=== PATIENT | male | born 1950 | race Caucasian/White ===

== ENCOUNTER 2017-02-19 12:00 | Outpatient (CLI) | payer MEDICARE ==
[2017-02-19 16:30] LABS: Bilirubin Negative (Negative); Blood, Urine Negative (Negative); Clarity Clear (Clear); Glucose, Urine (Dipstick) Negative (Negative); Leukocyte Negative (Negative); Nitrite Negative (Negative); Protein, Urine (Dipstick) Negative (Neg-Trace); Urobilinogen 0.2 mg/dL (0.2-1.0)
[2017-02-19 16:42] LABS: #Basophils 0.1 thou/uL (0.0-0.2); #Eosinphils 0.2 thou/uL (0.0-0.7); #Lymphocytes 2.4 thou/uL (1.20-3.40); #Monocytes 0.6 thou/uL (0.11-0.59); #Neutrophils 5.3 thou/uL (1.40-6.50); %Basophils 1.5 % (0.0-1.0); %Eosinophils 1.8 % (0.0-10.0); %Lymphocytes 28.1 % (21.0-51.0); %Monocytes 7.4 % (0.0-10.0); %Neutrophils 61.2 % (42.0-75.0); Bacteria/HPF None Seen HPF (None Seen); Hemoglobin 14.9 g/dL (14.0-18.0); Mean Corpuscular Hemoglobin 30.8 pg (27.0-31.0); Mean Corpuscular Volume 88.1 fl (80.0-94.0); Mean Platelet Volume 8.2 fL (7.4-10.4); Platelet Count 144 thou/uL (130-400); RBC Distribution Width 13.1 % (11.5-14.5); RBC/HPF None Seen HPF (0-3); Red Blood Cell (RBC) Count 4.83 mill/uL (4.70-6.10); Squamous Epithelial 0-3 HPF (0-3); WBC/HPF None Seen HPF (0-3); White Blood Cell (WBC) Count 8.6 thou/uL (4.8-10.8)
[2017-02-19 16:54] LABS: ALT (SGPT) 22 U/L (8-55); AST (SGOT) 18 U/L (5-34); Albumin 4.2 g/dL (3.4-4.8); Alkaline Phosphatase 76 U/L (40-150); Anion Gap 14 mmol/L (10-20); BUN (Urea Nitrogen) 18 mg/dL (8.4-25.7); Bilirubin, Total 0.6 mg/dL (0.2-1.2); Calc. Creatinine Clearance 0 mL/min (70-130); Calcium 9.3 mg/dL (7.8-10.44); Carbon Dioxide 28 mmol/L (23-31); Cardiac Risk 3.4 (Less than 4.5); Chloride 106 mmol/L (98-107); Cholesterol 155 mg/dl (< 200 Desired); Estimated GFR-MDRD 62; Globulin 2.9 g/dL (2.4-3.5); Glucose 68 mg/dL (80-115); HDL Cholesterol 45 mg/dL (>60 Neg Risk); LDL Cholesterol, Calculated 89 mg/dL; Potassium 4.4 mmol/L (3.5-5.1); Protein, Total 7.1 g/dL (5.8-8.1); Sodium 144 mmol/L (136-145); Triglycerides 106 mg/dL (Less than 150)
[2017-02-19 17:41] LABS: Thyroid Stimulating Hormone 3.9545 uIU/mL (0.35-4.94)
[2017-02-19 17:58] LABS: Hep C IgG Ab Non-Reactive (NonReactive)
== END 2017-02-19 12:01 | disposition home or self-care (01) ==
LOC: LABLEX 12:00
PROVIDERS: ATTEND Family Medicine
DX: Z12.5 Encounter for screening for malignant neoplasm of prostate (principal); Z13.6 Encounter for screening for cardiovascular disorders; E03.9 Hypothyroidism, unspecified; R33.9 Retention of urine, unspecified; N40.1 Benign prostatic hyperplasia with lower urinary tract symptoms; T67.5XXA Heat exhaustion, unspecified, initial encounter; Z98.890 Other specified postprocedural states; Z87.898 Personal history of other specified conditions; Z72.89 Other problems related to lifestyle
CPT/HCPCS: 80053; 80061; 81001; 84443; 85025; 86803; 87086

== ENCOUNTER 2017-04-24 09:59 | Outpatient (CLI) | payer MEDICARE ==
[2017-04-24 16:42] LABS: Free T4 (Free Thyroxine) 1.02 ng/dL (0.70-1.48); Thyroid Stimulating Hormone 3.6217 uIU/mL (0.35-4.94)
== END 2017-04-24 10:00 | disposition home or self-care (01) ==
LOC: LABLEX 09:59
PROVIDERS: ATTEND Nurse Practitioner
DX: E03.9 Hypothyroidism, unspecified (principal)
CPT/HCPCS: 84439; 84443

== ENCOUNTER 2018-12-21 08:55 | Outpatient (CLI) | payer MEDICARE ==
[2018-12-21 12:18] LABS: Eosinophils 1 % (0-10); Hemoglobin 13.7 g/dL (14.0-18.0); Lymphocytes 18 % (21-51); MDiff Complete? YES; Mean Corpuscular HGB CONC 33.8 g/dL (32.0-36.0); Mean Corpuscular Hemoglobin 29.7 pg (27.0-31.0); Mean Corpuscular Volume 87.9 fL (78.0-98.0); Mean Platelet Volume 9.5 fL (7.4-10.4); Monocytes 2 % (0-10); Neutrophil 79 % (42-75); Platelet Morphology Comment PLT clumps seen-ADEQ; RBC Distribution Width 13.6 % (11.5-14.5); White Blood Cell (WBC) Count 8.5 thou/uL (4.8-10.8)
[2018-12-21 12:48] LABS: Hemoglobin A1c 5.3 % (4.0-6.0)
--- NOTE | 2018-12-21 13:04 | RAD ---
CHEST 2 VIEWS: DATE: 12/21/2018. FINDINGS: The heart is normal in size and the lungs are clear. There is no infiltrate or effusion. The medias tinum appears normal and the trachea is midline. IMPRESSION: No acute findings. POS: [facility]
[2018-12-21 18:12] LABS: ALT (SGPT) 18 U/L (8-55); AST (SGOT) 14 U/L (5-34); Albumin 3.9 g/dL (3.4-4.8); Alkaline Phosphatase 88 U/L (40-150); Anion Gap 11 mmol/L (10-20); BUN (Urea Nitrogen) 20 mg/dL (8.4-25.7); Bilirubin, Total 0.5 mg/dL (0.2-1.2); Calc. Creatinine Clearance 0 mL/min (70-130); Calcium 8.9 mg/dL (7.8-10.44); Carbon Dioxide 30 mmol/L (23-31); Chloride 107 mmol/L (98-107); Estimated GFR-MDRD 54; Globulin 2.7 g/dL (2.4-3.5); Glucose 93 mg/dL (80-115); Potassium 3.6 mmol/L (3.5-5.1); Protein, Total 6.6 g/dL (5.8-8.1); Sodium 144 mmol/L (136-145)
== END 2018-12-21 08:56 | disposition home or self-care (01) ==
LOC: BURRAD 08:55
PROVIDERS: ATTEND Family Medicine
DX: Z01.818 Encounter for other preprocedural examination (principal); I10 Essential (primary) hypertension; R73.01 Impaired fasting glucose
CPT/HCPCS: 36415; 71046; 80053; 83036; 85025; 87081

== ENCOUNTER 2021-05-17 17:43 | Inpatient (IN) | payer MEDICARE ==
[2021-05-17 18:09] LABS: Bilirubin Negative (Negative); Blood, Urine Large (Negative); Clarity Slightly Cloudy (Clear); Glucose, Urine (Dipstick) Negative (Negative); Ketone, Urine Negative (Negative); Leukocyte Moderate (Negative); Nitrite Negative (Negative); Protein, Urine (Dipstick) 100 mg/dL (Neg-Trace)
[2021-05-17 18:15] LABS: RBC/HPF Greater than 50 HPF (0-3); Squamous Epithelial 0-3 HPF (0-3); WBC/HPF 21-50 HPF (0-3)
[2021-05-17 18:16] LABS: Bacteria/HPF Rare-Few HPF (None Seen)
[2021-05-17] MEDS ORDERED: Acetaminophen 500 MG TAB ONE ×2 (18:23→18:34)
[2021-05-17] MEDS ORDERED: Ondansetron ODT 4 MG TAB ONE (18:23)
[2021-05-17] MEDS ORDERED: cefTRIAXone\\ROCEPHIN 2 GM VIAL ONE (18:23)
[2021-05-17 18:26] LABS: Hemoglobin 12.9 g/dL (14.0-18.0); Mean Corpuscular HGB CONC 33.8 g/dL (32.0-36.0); Mean Corpuscular Hemoglobin 29.7 pg (27.0-31.0); Mean Corpuscular Volume 87.9 fL (78.0-98.0); Mean Platelet Volume 8.1 fL (7.4-10.4); Platelet Count 120 thou/uL (130-400); RBC Distribution Width 12.4 % (11.5-14.5); Red Blood Cell (RBC) Count 4.36 mill/uL (4.70-6.10)
[2021-05-17 18:39] LABS: ALT (SGPT) 34 U/L (8-55); AST (SGOT) 29 U/L (5-34); Albumin 3.2 g/dL (3.4-4.8); Alkaline Phosphatase 109 U/L (40-110); Anion Gap 16 mmol/L (10-20); BUN (Urea Nitrogen) 28 mg/dL (8.4-25.7); Bilirubin, Total 0.8 mg/dL (0.2-1.2); Calc. Creatinine Clearance 0 mL/min (70-130); Carbon Dioxide 26 mmol/L (23-31); Chloride 100 mmol/L (98-107); Globulin 3.8 g/dL (2.4-3.5); Glucose 140 mg/dL (80-115); Potassium 3.9 mmol/L (3.5-5.1); Sodium 138 mmol/L (136-145)
[2021-05-17 18:57] LABS: Band 8 % (5-11); Lymphocytes 20 % (21-51); MDiff Complete? YES; Monocytes 4 % (0-10); Neutrophil 66 % (42-75); Reactive Lymphocytes 1 % (0-10)
[2021-05-17] MEDS ORDERED: Fentanyl 100 MCG/2 ML VIAL ONE (19:42)
[2021-05-17 20:41] VITALS: BMI 36.6
[2021-05-17] MEDS ORDERED: traMADol HCl 50 MG TAB PO PRN (20:54)
[2021-05-17] MEDS ORDERED: Acetaminophen 325 MG TAB PO PRN (21:30)
[2021-05-17] MEDS ORDERED: Ondansetron PF 4 MG/2 ML Vial IVP PRN (21:30)
[2021-05-17] MEDS ORDERED: Ondansetron ODT 4 MG TAB SL PRN (21:30)
[2021-05-17] MEDS ORDERED: HYDROcodone/Acetaminophen 5/325 mg Tablet PO PRN ×2 (21:45)
[2021-05-17] MEDS: Dextrose 5 %-0.45 % NaCl 1,000 ML IV SCH (21:50)
[2021-05-17] MEDS: oxyCODONE 5 MG TAB PO SCH (21:50)
[2021-05-17] MEDS: traZODone HCl 50 MG TAB PO SCH (21:50)
[2021-05-17] MEDS: Apixaban 5 MG TAB PO SCH (21:50)
[2021-05-18] MEDS: Dextrose 5 %-0.45 % NaCl 1,000 ML IV SCH ×3 (04:42→22:19)
[2021-05-18] MEDS: Levothyroxine Sodium 100 MCG TAB PO SCH (04:44)
[2021-05-18] MEDS: cefTRIAXone\\ROCEPHIN 1 GM in Sodium Chloride 0.9% 100 ML IVPB SCH (08:21)
[2021-05-18] MEDS: Fluticasone Propionate Nasal Spray 16 gm Bottle NASAL SCH (08:22)
[2021-05-18] MEDS: Spironolactone 25 MG TAB PO SCH (08:22)
[2021-05-18] MEDS: Finasteride 5 MG TAB PO SCH (08:26)
[2021-05-18] MEDS: oxyCODONE 5 MG TAB PO SCH ×2 (08:26→20:22)
[2021-05-18] MEDS: Furosemide 40 MG TAB PO SCH (08:27)
[2021-05-18] MEDS: Tamsulosin HCl 0.4 MG CAP PO SCH (08:27)
[2021-05-18] MEDS: Apixaban 5 MG TAB PO SCH ×2 (08:27→20:22)
[2021-05-18] MEDS: Rosuvastatin 10 MG TAB PO SCH (08:28)
[2021-05-18] MEDS: Pyridostigmine Bromide 180 MG SRTAB PO SCH (10:58)
[2021-05-18] MEDS ORDERED: Bisacodyl 10 MG SUPP PR PRN (14:37)
[2021-05-18] MEDS: Polyethylene Glycol 3350 17 GM Packet PO PRN (14:56)
[2021-05-18] MEDS: traZODone HCl 50 MG TAB PO SCH (20:23)
[2021-05-19] MEDS: Dextrose 5 %-0.45 % NaCl 1,000 ML IV SCH (00:29)
[2021-05-19] MEDS: Levothyroxine Sodium 100 MCG TAB PO SCH (05:29)
[2021-05-19 06:02] LABS: Anion Gap 13 mmol/L (10-20)
[2021-05-19 06:31] LABS: ALT (SGPT) 257 U/L (8-55); AST (SGOT) 247 U/L (5-34); Albumin 2.6 g/dL (3.4-4.8); Alkaline Phosphatase 262 U/L (40-110); BUN (Urea Nitrogen) 19 mg/dL (8.4-25.7); Calc. Creatinine Clearance 75 mL/min (70-130); Calcium 7.6 mg/dL (7.8-10.44); Carbon Dioxide 25 mmol/L (23-31); Chloride 105 mmol/L (98-107); Globulin 2.6 g/dL (2.4-3.5); Glucose 180 mg/dL (80-115); Potassium 3.8 mmol/L (3.5-5.1); Protein, Total 5.2 g/dL (5.8-8.1); Sodium 139 mmol/L (136-145)
[2021-05-19 07:02] LABS: #Eosinphils 0.1 thou/uL (0.0-0.7); #Lymphocytes 1.3 thou/uL (1.20-3.40); #Monocytes 0.6 thou/uL (0.11-0.59); #Neutrophils 4.5 thou/uL (1.40-6.50); %Basophils 0.5 % (0.0-1.0); %Eosinophils 1.8 % (0.0-10.0); %Lymphocytes 20.1 % (21.0-51.0); %Monocytes 8.8 % (0.0-10.0); %Neutrophils 68.9 % (42.0-75.0); Band 3 % (5-11); Eosinophils 2 % (0-10); Hemoglobin 11.5 g/dL (14.0-18.0); Lymphocytes 18 % (21-51); MDiff Complete? YES; Mean Corpuscular HGB CONC 33.7 g/dL (32.0-36.0); Mean Corpuscular Hemoglobin 29.8 pg (27.0-31.0); Mean Corpuscular Volume 88.3 fL (78.0-98.0); Mean Platelet Volume 8.9 fL (7.4-10.4); Monocytes 9 % (0-10); Neutrophil 66 % (42-75); Platelet Count 118 thou/uL (130-400); Platelet Morphology Comment Appears Adequate; RBC Distribution Width 12.5 % (11.5-14.5); Reactive Lymphocytes 2 % (0-10); Red Blood Cell (RBC) Count 3.86 mill/uL (4.70-6.10); White Blood Cell (WBC) Count 6.5 thou/uL (4.8-10.8)
[2021-05-19] MEDS: Finasteride 5 MG TAB PO SCH (08:19)
[2021-05-19] MEDS: Spironolactone 25 MG TAB PO SCH (08:19)
[2021-05-19] MEDS: Rosuvastatin 10 MG TAB PO SCH (08:20)
[2021-05-19] MEDS: Furosemide 40 MG TAB PO SCH (08:20)
[2021-05-19] MEDS: oxyCODONE 5 MG TAB PO SCH ×2 (08:20→20:21)
[2021-05-19] MEDS: Tamsulosin HCl 0.4 MG CAP PO SCH (08:20)
[2021-05-19] MEDS: Apixaban 5 MG TAB PO SCH ×2 (08:20→20:21)
[2021-05-19] MEDS: cefTRIAXone\\ROCEPHIN 1 GM in Sodium Chloride 0.9% 100 ML IVPB SCH (08:21)
[2021-05-19] MEDS: Fluticasone Propionate Nasal Spray 16 gm Bottle NASAL SCH (08:23)
[2021-05-19 12:02] LABS: Bilirubin Negative (Negative); Blood, Urine Small (Negative); Clarity Clear (Clear); Glucose, Urine (Dipstick) Negative (Negative); Ketone, Urine Negative (Negative); Leukocyte Trace (Negative); Nitrite Negative (Negative); Protein, Urine (Dipstick) Negative (Neg-Trace)
[2021-05-19] MEDS: Pyridostigmine Bromide 180 MG SRTAB PO SCH (12:02)
[2021-05-19 12:03] LABS: Specific Gravity, Urine 1.004 (1.002-1.036)
[2021-05-19] MEDS: traZODone HCl 50 MG TAB PO SCH (20:22)
[2021-05-20] MEDS: Levothyroxine Sodium 100 MCG TAB PO SCH (05:32)
[2021-05-20 06:51] LABS: ALT (SGPT) 186 U/L (8-55); AST (SGOT) 78 U/L (5-34); Albumin 2.8 g/dL (3.4-4.8); Alkaline Phosphatase 248 U/L (40-110); Anion Gap 15 mmol/L (10-20); BUN (Urea Nitrogen) 20 mg/dL (8.4-25.7); Bilirubin, Total 0.7 mg/dL (0.2-1.2); Calc. Creatinine Clearance 75 mL/min (70-130); Calcium 8.5 mg/dL (7.8-10.44); Carbon Dioxide 26 mmol/L (23-31); Chloride 105 mmol/L (98-107); Globulin 3.4 g/dL (2.4-3.5); Glucose 112 mg/dL (80-115); Protein, Total 6.2 g/dL (5.8-8.1); Sodium 142 mmol/L (136-145)
[2021-05-20] MEDS: Polyethylene Glycol 3350 17 GM Packet PO PRN ×2 (09:49→21:08)
[2021-05-20] MEDS: Spironolactone 25 MG TAB PO SCH (09:50)
[2021-05-20] MEDS: Finasteride 5 MG TAB PO SCH (09:50)
[2021-05-20] MEDS: Rosuvastatin 10 MG TAB PO SCH (09:53)
[2021-05-20] MEDS: Apixaban 5 MG TAB PO SCH ×2 (09:53→20:06)
[2021-05-20] MEDS: oxyCODONE 5 MG TAB PO SCH ×2 (09:53→20:06)
[2021-05-20] MEDS: Tamsulosin HCl 0.4 MG CAP PO SCH (09:53)
[2021-05-20] MEDS: Furosemide 40 MG TAB PO SCH (09:53)
[2021-05-20] MEDS: cefTRIAXone\\ROCEPHIN 1 GM in Sodium Chloride 0.9% 100 ML IVPB SCH (09:54)
[2021-05-20] MEDS: Fluticasone Propionate Nasal Spray 16 gm Bottle NASAL SCH (09:54)
[2021-05-20] MEDS: Pyridostigmine Bromide 180 MG SRTAB PO SCH (09:55)
[2021-05-20] MEDS: traZODone HCl 50 MG TAB PO SCH (20:07)
[2021-05-21 04:21] VITALS: BP 131/73; TEMP 98.8
[2021-05-21 05:03] LABS: ALT (SGPT) 135 U/L (8-55); AST (SGOT) 39 U/L (5-34); Albumin 2.8 g/dL (3.4-4.8); Alkaline Phosphatase 246 U/L (40-110); Anion Gap 15 mmol/L (10-20); BUN (Urea Nitrogen) 22 mg/dL (8.4-25.7); Bilirubin, Total 0.5 mg/dL (0.2-1.2); Calc. Creatinine Clearance 78 mL/min (70-130); Calcium 8.4 mg/dL (7.8-10.44); Carbon Dioxide 26 mmol/L (23-31); Chloride 104 mmol/L (98-107); Globulin 3.5 g/dL (2.4-3.5); Glucose 120 mg/dL (80-115); Potassium 4.1 mmol/L (3.5-5.1); Protein, Total 6.3 g/dL (5.8-8.1); Sodium 141 mmol/L (136-145)
[2021-05-21] MEDS: Levothyroxine Sodium 100 MCG TAB PO SCH (05:12)
[2021-05-21] MEDS: Apixaban 5 MG TAB PO SCH (08:44)
[2021-05-21] MEDS: Furosemide 40 MG TAB PO SCH (08:45)
[2021-05-21] MEDS: Rosuvastatin 10 MG TAB PO SCH (08:45)
[2021-05-21] MEDS: Spironolactone 25 MG TAB PO SCH (08:46)
[2021-05-21] MEDS: cefTRIAXone\\ROCEPHIN 1 GM in Sodium Chloride 0.9% 100 ML IVPB SCH ×2 (08:46→09:09)
[2021-05-21] MEDS: Tamsulosin HCl 0.4 MG CAP PO SCH (08:46)
[2021-05-21] MEDS: Finasteride 5 MG TAB PO SCH (08:46)
[2021-05-21] MEDS: Fluticasone Propionate Nasal Spray 16 gm Bottle NASAL SCH (08:47)
[2021-05-21] MEDS: oxyCODONE 5 MG TAB PO SCH (08:47)
[2021-05-21] MEDS ORDERED: Pyridostigmine Bromide IR 60 MG TAB PO SCH (09:00)
== END 2021-05-21 11:24 | disposition home or self-care (01) | DRG 690 ==
LOC: BURERS 17:43 → BURMED 19:33
PROVIDERS: ADMIT Family Medicine; ATTEND Family Medicine
DX: N10 Acute pyelonephritis (principal); N17.9 Acute kidney failure, unspecified; I25.10 Atherosclerotic heart disease of native coronary artery without angina pectoris; I10 Essential (primary) hypertension; E78.5 Hyperlipidemia, unspecified; Z20.822 Contact with and (suspected) exposure to COVID-19; G47.33 Obstructive sleep apnea (adult) (pediatric); E03.9 Hypothyroidism, unspecified; N40.0 Benign prostatic hyperplasia without lower urinary tract symptoms; Z96.651 Presence of right artificial knee joint; E86.0 Dehydration; Z96.652 Presence of left artificial knee joint; Z87.891 Personal history of nicotine dependence; Z91.040 Latex allergy status; Z95.5 Presence of coronary angioplasty implant and graft; Z88.8 Allergy status to other drugs, medicaments and biological substances
CPT/HCPCS: 36415; 71045; 80053; 81003; 81015; 83605; 85025; 87040; 87086; 96365; 96375; J0696; J3010; J3490; J7042; Q0162